=== PATIENT | female | born 1970 | race Caucasian/White ===

== ENCOUNTER → 2019-08-23 | Outpatient (CLI) | payer MEDICAID ==
--- NOTE | 2019-08-23 10:40 | KCIC ---
Examination: CT HEAD WO CONTRAST History: Dementia, Down syndrome Comparison/Correlation: None Findings: Axial images of the head were obtained without contrast. Mild atrophy is present. Dilated right lateral ventricle trigone and right occipital horn noted but appears developmental. No intracranial hemorrhage, midline shift, or mass effect. Bony structures are unremarkable. Impression: No definite acute process. Distention of the right lateral ventricle trigone and occipital horn appears developmental. No obstructive lesion visualized. PQRS Compliance Statement: One or more of the following individualized dose reduction techniques were utilized for this examination: 1. Automated exposure control 2. Adjustment of the mA and/or kV according to patient size 3. Use of iterative reconstruction technique Electronically signed by: Mark Puga MD (08/23/2019 10:37 AM) [id number]
== END ==
LOC: KCIC CT 10:14
PROVIDERS: ATTEND Psychiatry & Neurology Neurology with Special Qualifications in Child Neurology
DX: G31.89 Other specified degenerative diseases of nervous system (principal); Q90.9 Down syndrome, unspecified; F02.80 Dementia in other diseases classified elsewhere, unspecified severity, without behavioral disturbance, psychotic disturbance, mood disturbance, and anxiety
CPT/HCPCS: 70450